=== PATIENT | male | born 1940 | race Caucasian/White ===

== ENCOUNTER 2017-09-02 01:05 | Emergency (ER) | payer MEDICARE ==
[~2017-09-02] VITALS: Ht 157.5 cm; Wt 68.0 kg
[~2017-09-02 01:05] MED LIST: ALPR.5 PO; AMLO5 PO; ASCO500 PO; ASPI81EC; ATOR40TA PO; BISA10S PR; CLOP75 PO; CYCL10 PO; Cipro500 MG PO; DOCU100 PO; ESCI10 PO; FENO160; FISH1000 PO; FOLI1 PO; FURO20; FURO20 PO; Fish Oil 10001000 MG PO; GEMF600 PO; IBUP800 PO; LANS30EC PO; LEVSOD200; LEVSOD75 PO; LISI10 PO; LISI20 PO; METO100; METO25ER PO; METO50; METO50 PO; MULVITA PO; OMEG1CAP30 PO; ONE DAILY ESS400 MCG PO; POTA10T PO; POTCHL20ER; POTCHL20ER PO; Prilosec Otc20 MG PO; SIMV40 PO; SOTO80 PO; STOMUL PO; TAMS.4ER PO; TAMSULOSIN HCL0.4 MG PO; WARF1 PO; WARF5; WARF5 PO
[2017-09-02 01:32] LABS: BASOPHILS ABSOLUTE AUTO 0.04 K/mm3 (0.00-0.23); BASOPHILS PERCENT AUTO 1 % (0-2); EOSINOPHILS ABSOLUTE AUTO 0.02 K/mm3 (0.00-0.68); EOSINOPHILS PERCENT AUTO 0 % (0-6); Hematocrit 44.7 % (37.0-53.0); Hemoglobin 14.8 g/dL (13.5-17.5); IMMATURE GRAN ABSOLUTE AUTO 0.03 K/mm3 (0.00-0.10); IMMATURE GRAN PERCENT AUTO 0 % (0-1); LYMPHOCYTES ABSOLUTE AUTO 1.72 K/mm3 (0.84-5.20); LYMPHOCYTES PERCENT AUTO 24 % (21-46); MONOCYTES ABSOLUTE AUTO 0.66 K/mm3 (0.16-1.47); MONOCYTES PERCENT AUTO 9 % (4-13); Mean Corpuscular HGB 29.6 pg (26.0-34.0); Mean Corpuscular HGB Conc 33.1 g/dL (31.5-36.5); Mean Corpuscular Volume 89 fL (80-100); Mean Platelet Volume 11.2 fL (9.1-12.4); NEUTROPHILS ABSOLUTE AUTO 4.61 K/mm3 (1.96-9.15); NEUTROPHILS PERCENT AUTO 65 % (41-73); Platelet Count 233 K/mm3 (150-400); RDW Coefficient Variation 13.7 % (11.7-14.2); RDW Standard Deviation 44.9 fL (35.1-46.3); White Blood Cell Count 7.08 K/mm3 (4.00-11.30)
[2017-09-02 01:34] LABS: PCO2 Arterial 39.9 mmHg (35-45); PO2 Arterial 69.7 mmHg (80-100); pH Blood Arterial 7.39 (7.35-7.45)
[2017-09-02 01:52] LABS: Alanine Aminotransfer (ALT/SGP 43 U/L (12-78); Alk Phos 110 U/L (50-136); Anion Gap 9 mmol/L (6-16); Aspartate Aminotrans (AST/SGOT 31 U/L (12-37); Bilirubin, Total 0.6 mg/dL (0.1-1.0); Blood Urea Nitrogen 19 mg/dL (8-24); Bun/Creatinine Ratio 25.1 (12.0-20.0); CO2, Blood 27 mmol/L (21-32); Calcium, Blood 8.4 mg/dL (8.5-10.1); Chloride, Blood 106 mmol/L (98-108); Creatinine, Blood 0.76 mg/dL (0.60-1.20); Glomerular Filtration Rate >60 (60-); Glucose, Blood 93 mg/dL (70-99); Sodium, Blood 142 mmol/L (136-145); Troponin I <0.015 ng/mL (0.000-0.040)
[2017-09-02 05:25] LABS: International Normalized Ratio 1.49; Prothrombin Time Results 15.7 Sec (9.7-11.5)
[2018-06-02] MEDS ORDERED: ATOR40TA PO (10:30)
[2018-06-02] MEDS ORDERED: POTASSIUM99 MG PO (10:31)
[2018-06-03] MEDS ORDERED: WARF1 PO (19:23)
[2018-06-04] MEDS ORDERED: Vision Vitamin1 EAC1 PO (18:10)
[2018-06-05] MEDS ORDERED: SOTO80 PO (12:16)
[2018-06-05] MEDS ORDERED: DOCU100 PO (12:16)
[2018-06-05] MEDS ORDERED: LISI20 PO (12:17)
== END 2017-09-02 05:15 | disposition home or self-care (01) ==
LOC: ER 01:05
PROVIDERS: Emergency Medicine
DX: I50.9 Heart failure, unspecified (principal); Z91.038 Other insect allergy status; Z79.899 Other long term (current) drug therapy; Z79.01 Long term (current) use of anticoagulants; Z79.84 Long term (current) use of oral hypoglycemic drugs; Z95.2 Presence of prosthetic heart valve; Z95.0 Presence of cardiac pacemaker; Z86.73 Personal history of transient ischemic attack (TIA), and cerebral infarction without residual deficits
CPT/HCPCS: 36415; 36600; 71046; 80053; 82803; 83880; 84484; 85025; 85610; 93005; 93010; 96374; 96375; 99283; J1940; J2930

== ENCOUNTER 2017-09-02 10:23 | Day surgery (SDC) | payer MEDICARE ==
[~2017-09-02] VITALS: Ht 154.9 cm; Wt 68.0 kg
[2017-09-03 05:29] LABS: International Normalized Ratio 1.47; Prothrombin Time Results 15.5 Sec (9.7-11.5)
[2018-06-02] MEDS ORDERED: ATOR40TA PO (10:30)
[2018-06-02] MEDS ORDERED: POTASSIUM99 MG PO (10:31)
[2018-06-03] MEDS ORDERED: WARF1 PO (19:23)
[2018-06-04] MEDS ORDERED: Vision Vitamin1 EAC1 PO (18:10)
[2018-06-05] MEDS ORDERED: SOTO80 PO (12:16)
[2018-06-05] MEDS ORDERED: DOCU100 PO (12:16)
[2018-06-05] MEDS ORDERED: LISI20 PO (12:17)
== END 2017-09-03 09:55 | disposition home or self-care (01) ==
LOC: MHTC 10:23 → PCU 17:50 → MHTC 09-03 09:55
PROVIDERS: Internal Medicine Clinical Cardiac Electrophysiology
PROC: 3E0102A Introduction of Anti-Infective Envelope into Subcutaneous Tissue, Open Approach (ICD-10-PCS; principal; 2017-09-02)
PROC: 0JPT0PZ Removal of Cardiac Rhythm Related Device from Trunk Subcutaneous Tissue and Fascia, Open Approach (ICD-10-PCS; principal; 2017-09-02)
PROC: 0JH606Z Insertion of Pacemaker, Dual Chamber into Chest Subcutaneous Tissue and Fascia, Open Approach (ICD-10-PCS; principal; 2017-09-02)
DX: Z45.010 Encounter for checking and testing of cardiac pacemaker pulse generator [battery] (principal); I11.0 Hypertensive heart disease with heart failure; I25.10 Atherosclerotic heart disease of native coronary artery without angina pectoris; I50.9 Heart failure, unspecified; I48.0 Paroxysmal atrial fibrillation; E78.5 Hyperlipidemia, unspecified; E03.9 Hypothyroidism, unspecified; Z95.2 Presence of prosthetic heart valve; Z95.1 Presence of aortocoronary bypass graft; Z86.73 Personal history of transient ischemic attack (TIA), and cerebral infarction without residual deficits; Z79.899 Other long term (current) drug therapy; Z79.01 Long term (current) use of anticoagulants
CPT/HCPCS: 33228; 36415; 85610; 99152; 99153; C1781; C1785; J0690; J1644; J2250; J3010; J7030; J7040; Q2038

== ENCOUNTER 2021-11-26 06:22 | Day surgery (SDC) | payer MEDICARE ==
[~2021-11-26] VITALS: Ht 157.5 cm; Wt 61.8 kg
[~2021-11-26 06:22] MED LIST changes: +HYDCHL12.5 PO; +LOSA25 PO; +POTA8 PO; +POTASSIUM99 MG PO; +PRAVASTATIN SOD40 MG PO; +Vision Vitamin1 EAC1 PO
[2021-11-26] MEDS ORDERED: OMEP20ER (06:48)
--- NOTE | 2021-11-26 06:54 | NUR ---
11/26/21 0654 Shannan Tran TETRACAINE IN LEFT EYE AT 0646, PLEDGET PLACE IN LEFT EYE AT 0647 BY [facility].DIONNE.
== END 2021-11-26 08:26 | disposition home or self-care (01) ==
LOC: ORSCSDS 06:22
PROVIDERS: Ophthalmology
PROC: 08RK3JZ Replacement of Left Lens with Synthetic Substitute, Percutaneous Approach (ICD-10-PCS; principal; 2021-11-26 08:00)
DX: H25.13 Age-related nuclear cataract, bilateral (principal); I10 Essential (primary) hypertension; E03.9 Hypothyroidism, unspecified; Z95.2 Presence of prosthetic heart valve; I49.5 Sick sinus syndrome; I35.0 Nonrheumatic aortic (valve) stenosis; Z86.73 Personal history of transient ischemic attack (TIA), and cerebral infarction without residual deficits; I25.2 Old myocardial infarction; Z79.01 Long term (current) use of anticoagulants; Z79.899 Other long term (current) drug therapy
CPT/HCPCS: J2001; J2250; J3010; J3301; J7040; V2632

== ENCOUNTER 2021-12-17 06:48 | Day surgery (SDC) | payer MEDICARE ==
[~2021-12-17] VITALS: Ht 157.5 cm; Wt 62.5 kg
[~2021-12-17 06:48] MED LIST changes: +OMEP20ER
--- NOTE | 2021-12-17 07:26 | NUR ---
12/17/21 0726 Matilde Nelson AT 0707 PLEDGET AT 0710
== END 2021-12-17 08:45 | disposition home or self-care (01) ==
LOC: ORSCSDS 06:48
PROVIDERS: Ophthalmology
PROC: 08RJ3JZ Replacement of Right Lens with Synthetic Substitute, Percutaneous Approach (ICD-10-PCS; principal; 2021-12-17 08:00)
DX: H25.11 Age-related nuclear cataract, right eye (principal); H21.81 Floppy iris syndrome; I10 Essential (primary) hypertension; H35.30 Unspecified macular degeneration; H40.9 Unspecified glaucoma; Z86.73 Personal history of transient ischemic attack (TIA), and cerebral infarction without residual deficits; I25.2 Old myocardial infarction; Z79.01 Long term (current) use of anticoagulants; Z95.0 Presence of cardiac pacemaker; Z79.899 Other long term (current) drug therapy
CPT/HCPCS: J2001; J2250; J3010; J3301; J7040; V2632

== ENCOUNTER 2024-01-13 07:47 | Day surgery (SDC) | payer MEDICARE ==
[~2024-01-13] VITALS: Ht 157.5 cm; Wt 61.1 kg
[~2024-01-13 07:47] MED LIST changes: +ALLO300 PO; +ENOX60I SC; +FERSU300 PO; +Glucagon, Human Recombinant 1 MG/Vial IV ONE; +Lactated Ringer's 1,000 ML IV SCH; +PRESERVISION A1 EAC1 PO
[2024-01-13] MEDS ORDERED: ENOX100I SC (08:15)
[2024-01-13] MEDS ORDERED: AMLODIPINE BESYL5 MG PO (08:19)
[2024-01-13 08:28] VITALS: BP 163/61
[2024-01-13] MEDS ORDERED: propofoL 20 ML IV ONE (08:44)
--- NOTE | 2024-01-13 09:05 | NUR ---
01/13/24 0905 Zion Hurst MONITOR INTACT WITH CONTINUOUS PULSE OXIMETRY, CONTINUOUS END TITAL CO2, AND INTERMITTENT BLOOD PRESSURE.EKG ANESTHESIA PER [employer]PING SUPERVISOR
[2024-01-13 09:41] VITALS: BP 147/67
--- NOTE | 2024-01-13 09:41 | NUR ---
PT TO DAY SURGERY STEP DOWN FROM EGD; BEDSIDE REPORT RECEIVED. PT IS SLEEPING, BUT RESPONDS TO VOICE. PT AT BEDSIDE, GOING OVER DISCHARGE INSTRUCTIONS AND MEDICATIONS WITH HER. PLAN TO RESTART COUMADIN AND LOVENOX TODAY. VSS.
[2024-01-13 09:51] VITALS: BP 146/65
--- NOTE | 2024-01-13 09:57 | NUR ---
Discharge instructions reviewed with patient. Patient verbalizes understanding. Copy given to patient to take home. Patient States Post-Procedure ride home has been arranged.
--- NOTE | 2024-01-13 10:26 | NUR ---
DISCHARGE PT A&OX4, VSS/RA, IV DC'D, DC INS PROVIDED, LEFT FLOOR VIA WC WITH DC VOLUNTEER TO GO HOME WITH WITH ALL PERSONAL POSSESSIONS.
== END 2024-01-13 10:26 | disposition home or self-care (01) ==
LOC: ORSCMMR 07:47 → ORD 09:30 → ORSCMMR 10:26
PROVIDERS: Internal Medicine Gastroenterology
PROC: 0DJ08ZZ Inspection of Upper Intestinal Tract, Via Natural or Artificial Opening Endoscopic (ICD-10-PCS; principal; 2024-01-13 09:30)
DX: D64.9 Anemia, unspecified (principal); I10 Essential (primary) hypertension; Z86.73 Personal history of transient ischemic attack (TIA), and cerebral infarction without residual deficits; I25.2 Old myocardial infarction; E03.9 Hypothyroidism, unspecified; Z95.0 Presence of cardiac pacemaker; E78.5 Hyperlipidemia, unspecified; Z79.01 Long term (current) use of anticoagulants; Z79.899 Other long term (current) drug therapy
CPT/HCPCS: J1610; J2704; J7120

== ENCOUNTER 2024-01-15 12:40 | Emergency (ER) | payer MEDICARE ==
[~2024-01-15] VITALS: Ht 167.6 cm; Wt 72.6 kg
[~2024-01-15 12:40] MED LIST changes: +AMLODIPINE BESYL5 MG PO; +ENOX100I SC; -Glucagon, Human Recombinant 1 MG/Vial IV ONE; -Lactated Ringer's 1,000 ML IV SCH
[2024-01-15 12:42] VITALS: BP 144/64
== END 2024-01-15 12:46 | disposition home or self-care (01) ==
LOC: ER 12:40
DX: S50.12XA Contusion of left forearm, initial encounter (principal); E78.5 Hyperlipidemia, unspecified; I10 Essential (primary) hypertension; E03.9 Hypothyroidism, unspecified; X58.XXXA Exposure to other specified factors, initial encounter; Z86.73 Personal history of transient ischemic attack (TIA), and cerebral infarction without residual deficits; Z79.899 Other long term (current) drug therapy; Z79.01 Long term (current) use of anticoagulants; Z91.030 Bee allergy status
CPT/HCPCS: 99282